=== PATIENT | male | born 1980 | race African-American/Black ===

== ENCOUNTER 2017-08-23 15:16 | Outpatient (CLI) | payer OTHER | END 2017-08-23 17:44 | disposition home or self-care (01) | LOC: DCC 15:16 | DX: R55 Syncope and collapse (principal); R00.1 Bradycardia, unspecified; Z72.0 Tobacco use | CPT/HCPCS: G0463 ==

== ENCOUNTER 2017-09-06 14:59 | Outpatient (CLI) | payer OTHER | END 2017-09-06 15:48 | disposition home or self-care (01) | LOC: DCC 14:59 | DX: R55 Syncope and collapse (principal); R00.1 Bradycardia, unspecified | CPT/HCPCS: G0463 ==